=== PATIENT | female | born 1960 | race African-American/Black ===

== ENCOUNTER 2021-12-14 18:34 | Emergency (ER) | payer SELFPAY ==
[~2021-12-14] VITALS: Ht 172.7 cm; Wt 65.4 kg
--- NOTE | 2021-12-14 18:49 | PHYS DOC ---
Past Medical History Past Medical History: Hypertension Past Surgical History: Smoking Status: Never Smoker Alcohol Use: None Drug Use: None General Adult EDM: Chief Complaint: LOWER EXTREMITY SWELLING HPI: HPI: Patient is a 61 year old female with a history of hypertension who presents the ED today complaining of left lower extremity swelling and redness, symptoms began 2 days ago. Patient denies any injuries. Denies any fever, denies any chest pain or shortness of breath. Review of Systems: Review of Systems: Constitutional: Denies fever or chills. [] Eyes: Denies change in visual acuity. [] HENT: Denies nasal congestion or sore throat. [] Respiratory: Denies cough or shortness of breath. [] Cardiovascular: Denies chest pain or edema. [] GI: Denies abdominal pain, nausea, vomiting, bloody stools or diarrhea. [] : Denies dysuria. [] Musculoskeletal: Denies back pain or joint pain. [] Integument: Reports left lower extremity swelling and redness Neurologic: Denies headache, focal weakness or sensory changes. [] [] Psychiatric: Denies depression or anxiety. [] Heart Score: C/O Chest Pain: N/A Risk Factors: Risk Factors: DM, Current or recent (<one month) smoker, HTN, HLP, family history of CAD, obesity. Risk Scores: Score 0 - 3: 2.5% MACE over next 6 weeks - Discharge Home Score 4 - 6: 20.3% MACE over next 6 weeks - Admit for Clinical Observation Score 7 - 10: 72.7% MACE over next 6 weeks - Early Invasive Strategies Allergies: Allergies: Allergies Coded Allergies Type Severity Reaction Last Updated Verified No Known Drug Allergies 12/23/15 No Physical Exam: PE: Constitutional: Well developed, well nourished, no acute distress, non-toxic appearance. [] HENT: Normocephalic, atraumatic, bilateral external ears normal, oropharynx moist, no oral exudates, nose normal. [] Eyes: PERRLA, EOMI, conjunctiva normal, no discharge. [] Neck: Normal range of motion, no tenderness, supple, no stridor. [] Cardiovascular:Heart rate regular rhythm, no murmur [] Lungs & Thorax: Bilateral breath sounds clear to auscultation [] Abdomen: Bowel sounds normal, soft, no tenderness, no masses, no pulsatile masses. [] Skin: Left anterior jones and calf with mild cellulitis, +2 left lower extremity edema. Range of motion is intact to the left lower extremity, negative Homans' sign to the left lower extremity. +2 left pedal pulse. Back: No tenderness, no CVA tenderness. [] Extremities: No tenderness, no cyanosis, no clubbing, ROM intact, no edema. [] Neurologic: Alert and oriented X 3, normal motor function, normal sensory function, no focal deficits noted. [] Psychologic: Affect normal, judgement normal, mood normal. [] EKG: EKG: [] Radiology/Procedures: Radiology/Procedures: []PROCEDURE: VENOUS LOWER EXTREMITY LEFT Left lower extremity venous Doppler dated 12/14/2021 7:31 PM COMPARISON: none. CLINICAL INDICATION: Swelling and pain Reason: LLE cellulitis / Spl. Instructions: / History: FINDINGS: Grayscale, color-flow and spectral waveform analysis performed to include the deep venous system of left lower extremity. There is normal compressibility, phasicity and augmentation of flow throughout. No filling defects are seen. IMPRESSION: No evidence of left lower extremity deep vein thrombosis. Electronically signed by: Charles Barnett MD (12/14/2021 7:32 PM) [facility] [place] DICTATED and SIGNED BY: CHARLES BARNETT MD DATE: 12/14/211930 Course & Med Decision Making: Course & Med Decision Making Pertinent Labs and Imaging studies reviewed. (See chart for details) This is a 61-year-old female patient presented to the ED today with left lower extremity swelling and redness that began 2 days ago. Venous Doppler of the left lower extremity is negative, physical exam consistent with cellulitis. Tetanus updated. Discharged on Bactrim. Follow-up with PCP in the next 7 days. Carrie Disclaimer: Carrie Disclaimer: This electronic medical record was generated, in whole or in part, using a voice recognition dictation system. Departure Departure Impression: Primary Impression: Cellulitis of lower extremity Qualified Codes: L03.116 - Cellulitis of left lower limb Disposition: HOME / SELF CARE / HOMELESS Condition: STABLE Referrals: UNKNOWN PCP NAME (PCP) follow up with your doctor in one week Patient Instructions: Cellulitis, [id number] Additional Instructions: You have cellulitis to the left lower extremity. Take the prescribed antibiotics until completed. Follow-up with your doctor in 1 week, come back to the ED at any point symptoms worsen Scripts Hydrocodone Bit/Acetaminophen (HYDROCODONE-APAP 5-325 ) 1 Tab Tablet 1 TAB PO PRN Q6HRS PRN for PAIN, #8 TAB 0 Refills Prov: LUCIUS RODRIGUEZ APRN 12/14/21 Sulfamethoxazole/Trimethoprim (BACTRIM 400-80 MG TABLET) 1 Each Tablet 1 TAB PO BID for 10 Days, #20 TAB 0 Refills Prov: LUCIUS RODRIGUEZ APRN 12/14/21 LUCIUS RODRIGUEZ APRN December 14, 2021 18:49
--- NOTE | 2021-12-14 19:34 | RAD ---
Left lower extremity venous Doppler dated 12/14/2021 7:31 PM COMPARISON: none. CLINICAL INDICATION: Swelling and pain Reason: LLE cellulitis / Spl. Instructions: / History: FINDINGS: Grayscale, color-flow and spectral waveform analysis performed to include the deep venous system of l eft lower extremity. There is normal compressibility, phasicity and augmentation of flow throughout. No filling defects are seen. IMPRESSION: No evidence of left lower extremity deep vein thrombosis. Electronically signed by: Julio C Barnett MD (12/14/2021 7:32 PM) ED
[2021-12-14] MEDS ORDERED: SULF1TAB23 PO (19:42)
[2021-12-14] MEDS ORDERED: HYDR-2761 PO (19:42)
[2021-12-14] MEDS ORDERED: SMZ/TMP 800/160MG TABLET. PO ONE (19:45)
[2021-12-14] MEDS ORDERED: DIPHTH,PERTUSS(ACELL),TET TOX 0.5 ML DISP.SYRIN. VAX IM ONE (19:45)
[2021-12-14 20:06] VITALS: BP 121/78
== END 2021-12-14 20:07 | disposition home or self-care (01) ==
LOC: ER 18:34
DX: L03.116 Cellulitis of left lower limb (principal); I10 Essential (primary) hypertension
CPT/HCPCS: 90471; 90715; 93971; 99284-25